=== PATIENT | male | born 1975 | race Two or more races ===

== ENCOUNTER → 2016-07-13 | Outpatient (REF) | payer OTHER | LOC: M SMT 09:15 | PROVIDERS: ATTEND Urology | DX: Z30.2 Encounter for sterilization (principal) ==

== ENCOUNTER → 2016-09-14 | Outpatient (REF) | payer OTHER ==
[2016-09-14 13:01] LABS: IMMOTILE SPERM ABSENT (ABSENT); MOTILE SPERM ABSENT (ABSENT)
[2016-09-14 13:03] LABS: IMMMOTILE SPERM CENTRIFUGED ABSENT (ABSENT); MOTILE SPERM CENTRIFUGED ABSENT (ABSENT)
== END ==
LOC: M SMT 12:47
PROVIDERS: ATTEND Urology
DX: Z30.2 Encounter for sterilization (principal)